=== PATIENT | female | born 1960 | race Caucasian/White ===

== ENCOUNTER → 2016-09-20 | Outpatient (CLI) | payer BC ==
--- NOTE | 2016-09-20 10:38 | RAD ---
Right hip and right femur radiograph 09/20/2016 at 10:18 AM Indication: Pain for 6 months with a loud pop. Comparison: None available Technique: AP and frog leg views of the right hip and 4 views of the right femur are provided. Findings: Right hip: There is mild superolateral joint space narrowing with endplate sclerosis of the right hip. There is no acute fracture or dislocation. No significant soft tissue swelling identified. Moderate degenerative changes are identified in the lower lumbar spine. Right femur: There is no acute fracture or dislocation. No suspicious osseous lesion identified. No significant soft tissue abnormality. Mild superior patellar at the site of the noted. Impression: 1. No evidence for acute fracture or dislocation involving the right hip and right femur. 2. Mild osteoarthrosis of the right hip.
== END | disposition home or self-care (01) ==
LOC: RAD 08:25
PROVIDERS: ATTEND Family Medicine
DX: M16.11 Unilateral primary osteoarthritis, right hip (principal)
CPT/HCPCS: 73502; 73552